=== PATIENT | male | born 1985 | race Caucasian/White ===

== ENCOUNTER 2021-12-30 13:55 | Inpatient (IN) | payer OTHER, MEDICAID, SELFPAY ==
[2021-12-30] VITALS (20 sets, daily range): BP systolic 122–173; BP diastolic 70–109; PULSE 87–111; RESP 16–20; TEMP 36.2–43; O2SAT 91–100; BMI 34.2; BMI 36.4
--- NOTE | 2021-12-30 14:39 | PC.NURSE ---
calling [facility] [place] for records from previous visit.
--- NOTE | 2021-12-30 14:52 | HMH.EDGENADL ---
ED Disposition Clinical Impression: Septic arthritis of knee, left Qualifiers: Septic arthritis organism: staphylococcal Qualified Code(s): M00.062 - Staphylococcal arthritis, left knee Disposition: Still a Patient Condition on Discharge: Fair Referrals: Provider,Referral, [Primary Care Provider] - - Critical Care Critical Care Time: No Attestation: On 12/30/21, the high probability of a clinically significant, sudden or life threatening deterioration of the following system(s) required my full and direct attention, intervention and personal management. The time I documented below is in addition to time spent performing reported procedures but includes the following listed in this critical care notation. Medical Decision Making - Garland Inquiry Pt receiving controlled substance: Yes [place] was queried for this patient: No Risks and benefits of using a controlled substance: were not discussed with pt by me Vital Signs: 12/30/21 13:56 12/30/21 14:30 12/30/21 15:00 Temperature 98.4 F Temperature Source Oral Pulse Rate 101 H 98 H Pulse Rate [Left Radial] 108 H Respiratory Rate 18 Blood Pressure 145/95 H 125/78 Blood Pressure [Right Arm] 141/98 H Blood Pressure Mean Blood Pressure Mean [Right Arm] 112 Blood Pressure Source [Right Arm] Automatic Cuff Blood Pressure Position [Right Arm] Sitting 02 Sat by Pulse Oximetry 99 94 L 94 L Oxygen Delivery Method Room Air 12/30/21 15:30 12/30/21 16:00 12/30/21 16:30 Temperature Temperature Source Pulse Rate 103 H 87 100 H Pulse Rate [Left Radial] Respiratory Rate Blood Pressure 136/94 H 122/70 132/94 H Blood Pressure [Right Arm] Blood Pressure Mean Blood Pressure Mean [Right Arm] Blood Pressure Source [Right Arm] Blood Pressure Position [Right Arm] 02 Sat by Pulse Oximetry 91 L 97 100 Oxygen Delivery Method 12/30/21 17:00 12/30/21 17:31 12/30/21 20:01 Temperature 98.4 F Temperature Source Pulse Rate 90 111 H 111 H Pulse Rate [Left Radial] Respiratory Rate 20 18 18 Blood Pressure 129/81 141/75 H 141/75 H Blood Pressure [Right Arm] Blood Pressure Mean 97 97 Blood Pressure Mean [Right Arm] Blood Pressure Source [Right Arm] Blood Pressure Position [Right Arm] 02 Sat by Pulse Oximetry 95 98 Oxygen Delivery Method - Lab Data Lab Results 12/30/21 15:05: WBC 10.2, RBC 4.52 L, Hgb 13.6 L, Hct 42.6, MCV 94.1 H, MCH 30.1, MCHC 32.0, RDW 13.6, Plt Count 251, MPV 8.6, Neut % (Auto) 68.0, Lymph % (Auto) 20.1, [place] % (Auto) 7.3, Eos % (Auto) 3.0, Baso % (Auto) 1.6, Neut # (Auto) 6.9, Lymph # (Auto) 2.0, [place] # (Auto) 0.7, Eos # (Auto) 0.3, Baso # (Auto) 0.2, ESR 73 H 12/30/21 15:05: Sodium 133 L, Potassium 3.6, Chloride 98, Carbon Dioxide 28, Anion Gap 10.6, BUN 15, Creatinine 0.90, Estimated Creat Clear 191, Estimated GFR 96, Est GFR ( Amer) 116, Glucose 114 H, Calcium 8.0 L, Total Bilirubin 0.9, AST 30, ALT 36, Alkaline Phosphatase 93, C-Reactive Protein 250.8 H, Total Protein 7.4, Albumin 3.9, Globulin 3.5 H, Albumin/Globulin Ratio 1.1 12/30/21 15:05: Uric Acid 6.3 12/30/21 15:05: Lactate 0.9 12/30/21 18:00: SARS-CoV-2 (PCR) Not detected, Influenza A Untype (PCR) Not detected, Influenza Type B (PCR) Not detected Result diagrams: 12/30/21 15:05 12/30/21 15:05 Orders (Tests/Meds): ED MEDICATIONS Discontinued Medications Generic Name Dose Route Start Last Admin Trade Name Freq PRN Reason Stop Dose Admin Vancomycin HCl 2,000 mg/ 500 mls @ 250 mls/hr 12/30/21 19:15 Sodium Chloride IV 12/30/21 21:14 ONCE ONE Vancomycin/PEG/NADA/Lysine/Water 1.75 gm in 350 mls @ 175 mls/hr 12/31/21 04:00 Vancomycin 1.75gm/350ml (Peg) Premix IV 01/14/22 03:59 Q8H GERI Morphine Sulfate 4 mg 12/30/21 15:43 12/30/21 15:48 Morphine 4mg/Ml Syringe IV 12/30/21 15:44 4 mg ONCE ONE Administration Ondansetron HCl 4 mg 12/30/21 15:43 12/30/21 15:48 Ondan
[2021-12-30 15:14] LABS: Basophils # 0.2 K/mm3 (0-0.2); Basophils % 1.6 % (0.1-2.0); Eosinophils # 0.3 K/mm3 (0.0-0.4); Hematocrit 42.6 % (42.0-52.0); Hemoglobin 13.6 g/dL (14.1-18.0); Lymphocytes % 20.1 % (10-50); Mean Corpuscular Hemoglobin 30.1 pg (27.0-31.2); Mean Corpuscular Volume 94.1 fl (80-94); Mean Platelet Volume 8.6 fl (7.4-10.4); Monocytes # 0.7 K/mm3 (0.1-1.0); Monocytes % 7.3 % (1.7-9.3); Neutrophils # 6.9 K/mm3 (1.8-7.8); Platelet Count 251 K/mm3 (142-424); Red Blood Count 4.52 M/mm3 (4.60-6.20); Red Cell Distribution Width 13.6 % (11.5-17.5); White Blood Count 10.2 K/mm3 (4.8-10.8)
[2021-12-30 15:21] LABS: Chloride 98 mmol/L (98-107)
[2021-12-30 15:22] LABS: Potassium 3.6 mmoL/L (3.5-5.1); Sodium 133 mmol/L (136-145)
[2021-12-30 15:24] LABS: Alanine Aminotransferase 36 U/L (12-78); Alkaline Phosphatase 93 U/L (38-126); Aspartate Amino Transferase 30 U/L (17-59); Bilirubin,Total 0.9 mg/dl (0.2-1.3); Blood Urea Nitrogen 15 mg/dl (9-20); Creatinine Clearance Estimated 191 mL/min (50-200); Estimated Glomerular Filt Rate 96 ml/min (>60); GFR (African American) 116 ML/MIN (>60)
[2021-12-30 15:25] LABS: Albumin Level 3.9 g/dl (3.5-5.0); Albumin/Globulin Ratio 1.1 (1.1-1.8); Anion Gap 10.6 mEq/L (5-15); Carbon Dioxide 28 mmol/L (22.0-30.0); Globulin 3.5 g/dL (1.3-3.2); Glucose 114 mg/dl (74-100); Total Protein,Serum 7.4 g/dl (6.3-8.2)
[2021-12-30 15:30] LABS: C-Reactive Protein 250.8 mg/L (0-4)
[2021-12-30 15:38] LABS: Erythrocyte Sedimentation Rate 73 mm/hr (0-15)
--- NOTE | 2021-12-30 16:21 | PC.NURSE ---
contacting [facility] again for records.
--- NOTE | 2021-12-30 17:04 | PC.NURSE ---
placed call to [facility] Tone Jim spoke with someone in the ER he advised he would print it out right now and fax last ER note to us. He did advise he probably could not get access to preliminary culture values.
--- NOTE | 2021-12-30 17:46 | PC.NURSE ---
dr. Augustin paged
--- NOTE | 2021-12-30 17:49 | PC.NURSE ---
called and spoke directly to the lab dept at [facility], spoke with a tech named raul and she stated that there was a preliminary result of the knee aspirated fluid showed light growth of staph
--- NOTE | 2021-12-30 17:59 | XR_ITS ---
PROCEDURE INFORMATION: Exam: XR Left Knee Exam date and time: 12/30/2021 5:59 PM Age: 36 years old Clinical indication: Swelling or effusion of joint; Prior surgery; Surgery date: 6+ months; Surgery type: Acl repair 2003; Patient HX: Swelling in left knee no trauma; Additional info: Knee pain-infection TECHNIQUE: Imaging protocol: XR Left knee. Views: 3 views. COMPARISON: No relevant prior studies available. FINDINGS: Bones/joints: Status post ACL repair. There is no evidence of acute fracture. There is no evidence of joint malalignment or dislocation. Soft tissues: Mild soft tissue swelling. Other findings: Small suprapatellar joint effusion. IMPRESSION: 1. No evidence of acute fracture. 2. No evidence of acute dislocation. 3. Mild soft tissue swelling. 4. Small suprapatellar joint effusion.
[2021-12-30 18:09] LABS: Uric Acid 6.3 mg/dl (3.5-8.5)
[2021-12-30 18:31] LABS: Lactic Acid 0.9 mmol/L (0.7-2.1)
--- NOTE | 2021-12-30 18:37 | PC.NURSE ---
Dr Augustin in dept at this time.
--- NOTE | 2021-12-30 18:52 | PC.NURSE ---
Pt going to OR per
--- NOTE | 2021-12-30 19:02 | PC.NURSE ---
called [facility] for Vancomycin IV loading dose, s/w Edwin, and he recommends Vanco 2grams. He will place order in DEC. Dr. Augustin said do not give it but call for dosing and prepare.
[2021-12-30 19:04] LABS: Coronavirus 19, PCR Not Detected (NotDetected); Influenza A, PCR Not Detected (NotDetected); Influenza B, PCR Not Detected (NotDetected)
--- NOTE | 2021-12-30 19:15 | PC.WOUNDNOTE ---
Notified by Dr Augustin at 1854 that pt is to go to OR for arthroscopy and washout of left knee r/t septic joint. states that he has already spoken with Anesthesia. Marisela and Mary Grant Called and notified of case at 1856 and 1858.
--- NOTE | 2021-12-30 19:54 | HMH.ORTHHP ---
*Admission Date: 12/30/21 *Reason for consult:: Septic arthritis, left knee *History of present illness: Patient is a 36-year-old male who presented to the ER this afternoon with 3-day history of acute left knee pain and swelling. He says the pain started evening while he was sitting and watching TV. He says the knee began to feel warm and he woke up from sleep around 3 AM in the morning with severe pain. There is no history of any recent knee injury. Patient reports that the following day (12/28/2021) he went to [facility] ER where he had his left knee aspirated. Patient states that the fluid that was aspirated from the knee was 'like pus'. He also reports he was given IV antibiotics and had some blood work; following evaluation there, patient says he was sent home with oral Keflex and naproxen and was told to follow-up with an orthopedic surgeon during the weekday. He says he has taken about 5 tablets of Keflex so far. He says the pain is slightly better today compared to couple of days ago. Patient states that one of his aunts is a nurse practitioner (Janie Alcantar, SCHOOL VOCATIONAL EDUCATOR for Dr. Pedersen) at [facility] and she advised him to come to the ER at [facility] for evaluation for possible septic arthritis. After patient presented to the ER at [facility], he had some blood work which showed normal white cell count with markedly elevated CRP and elevated ESR. Symptomatically patient reports that his knee feels better today than the previous few days. He says the knee feels warm to touch. No history of any fevers, chills or rigors. Patient says he is feeling well within himself. No history of any distal tingling or numbness. He has been mobilizing fully weightbearing on the left lower extremity. He reports that the pain is exacerbated with any attempted knee movements. Patient has history of left knee ACL reconstruction in 2003 following a footballing injury. Subsequently he also had right knee ACL reconstruction in 2010 again after a footballing injury. Patient reports that he did not have any complications following his left knee surgery. He says he did not have similar problem previously. However, patient states that he did have some ongoing knee pain for a long time. He has no significant medical problems and is not on any regular medication. The ER physician (Dr. Gong) contacted [facility] and obtained a preliminary report on the patient's knee joint fluid culture, which is shown to be growing Staph aureus. He states that he was unable to get any other records. [facility] History I have reviewed the patient's past medical history: Yes *Have you ever received a pneumonia vaccine?: Yes *Have you received a flu vaccine this season?: Yes Laterality Cases: Bilateral: ACL Repair - *Social History Smoking Status: Never smoker Alcohol Intake: former *Occupational Status:: employed *Travel in the last 8 weeks: Inside the [employer] Family Hx:: Non-contributory Review of Systems - Review of Systems Review of systems:: pertinent systems reviewed and negative unless documented below - Constitutional Denies anorexia, Denies chills, Denies fever(s) - Eyes Denies change in vision - ENT Denies abnormal hearing, Denies difficulty swallowing - *Cardiovascular Denies chest pain, Denies chest pain with activity, Denies shortness of breath - *Respiratory Denies chest congestion, Denies shortness of breath with activity - *Gastrointestinal Denies abdominal pain, Denies change in bowel habits - *Genitourinary Denies difficulty urinating - *Musculoskeletal Reports abnormal walking, Reports joint pain, Reports joint swelling, Reports limited joint movement - *Neurologic Reports abnormal walking, Denies seizure-like activity, Denies tingling/numbness/burning sensations - Endocrine Denies cold intolerance, Denies heat intolerance - Hematologic/Lymphatic Denies easy bleeding, Denies
--- NOTE | 2021-12-30 20:49 | HMH.ANESCL ---
[facility] Anesthesia Checklist - Patient Identification Patient Identification: Arm Band - Structural Data Admitted From: Home Planned Operative Procedure/s: Arthroscopic Washout and Debridement Left Knee Consent for Planned Operative Procedure(s) Verified: Yes Verified Documents: Surgical Consent, History and Physical - NPO Status Verified Time NPO: 00:00 - Additional verifications Anesthesia Reactions: No - Airway Assessment C-Spine Mobility Assessed: Yes (mp2) TMJ Mobility Assessed: Yes Dentition: Good Dentition - Neurological Assessment Level of Consciousness: Awake, Alert - Anesthesia Plan Anesthesia Risk discussed: Yes Anesthesia Plan: Verified ASA Class: II (e) Anesthesia Type: General [facility] History I have reviewed the patient's past medical history: Yes *Have you ever received a pneumonia vaccine?: Yes *Have you received a flu vaccine this season?: Yes Anesthesia experience/problems:: nac Other Surgeries: Yes: Other - *Social History Smoking Status: Never smoker Alcohol Intake: current Alcohol Intake Frequency:: other Substance Use Type: denies use *Occupational Status:: employed *Travel in the last 8 weeks: None Family Hx:: No significant family history
--- NOTE | 2021-12-30 21:56 | P.PN_ITS ---
[facility] Anesthesia Record Part I Intake, IV Amount: 1,100 Estimated blood loss (mL): 10 Urine output (mL): 0 Blood Pressure: 139/103 SaO2: 93 Pulse Rate: 100 Respiratory Rate: 16 Temperature: 97.2 F Patient is:: Drowsy, Stable Stable to PACU at:: 21:50
--- NOTE | 2021-12-30 22:40 | PC.NURSE ---
pt arrived to floor from surgery at 2229, via stretcher with surgery staff
--- NOTE | 2021-12-30 22:46 | HMH.OPNOTE ---
Date of procedure: 12/31/21 Pre-op Diagnosis:: Septic arthritis, left knee Post-op Diagnosis:: 1. Septic arthritis, left knee 2. Degenerative arthritis, left knee Procedure performed:: Arthroscopic washout/debridement, left knee Surgeon:: Jayro Augustin MD Amusement Machine Mechanic(s):: Mary Lopez CSA AV SPECIALIST:: Royce Davis Anesthesia: LMA Estimated blood loss (mL): 5 Clinical Note:: Patient is a 36-year-old male who presented to the ER this afternoon with 3-day history of acute left knee pain and swelling. He says the pain started evening while he was sitting and watching TV. He says the knee began to feel warm and he woke up from sleep around 3 AM in the morning with severe pain. There is no history of any recent knee injury. Patient reports that the following day (12/28/2021) he went to [facility] ER where he had his left knee aspirated. Patient states that the fluid that was aspirated from the knee was 'like pus'. He also reports he was given IV antibiotics and had some blood work; following evaluation there, patient says he was sent home with oral Keflex and naproxen and was told to follow-up with an orthopedic surgeon during the weekday. He says he has taken about 5 tablets of Keflex so far. He says the pain is slightly better today compared to couple of days ago. Patient states that one of his aunts is a nurse practitioner (Janie Alcantar, MAGAZINE DESIGNER for Dr. Pedersen) at [facility] and she advised him to come to the ER at [facility] for evaluation for possible septic arthritis. After patient presented to the ER at [facility], he had some blood work which showed normal white cell count with markedly elevated CRP and elevated ESR. Symptomatically patient reports that his knee feels better today than the previous few days. He says the knee feels warm to touch. No history of any fevers, chills or rigors. Patient says he is feeling well within himself. No history of any distal tingling or numbness. He has been mobilizing fully weightbearing on the left lower extremity. He reports that the pain is exacerbated with any attempted knee movements. Patient has history of left knee ACL reconstruction in 2003 following a footballing injury. Subsequently he also had right knee ACL reconstruction in 2011 again after a footballing injury. Patient reports that he did not have any complications following his left knee surgery. He says he did not have similar problem previously. However, patient states that he did have some ongoing knee pain for a long time. He has no significant medical problems and is not on any regular medication. The ER physician (Dr. Gong) contacted [facility] and obtained a preliminary report on the patient's knee joint fluid culture, which is shown to be growing Staph aureus. He states that he was unable to get any other records. On examination of the left knee, there are well-healed surgical scars from previous ACL surgery. There are multiple needle puncture cobb over the lateral aspect of the knee possibly from recent knee aspiration at an outside facility. There is diffuse swelling and mild erythema over the knee. There is increased local warmth compared to the opposite side. There is a 1+ knee effusion; patient has tenderness over all 3 compartments. Knee range of movements is limited from 10 to 50 degrees of flexion only. The movements are painful. Knee joint is ligamentously stable. Thigh and calf are soft and nontender. Distal neurovascular status is intact. Dorsalis pedis and posterior tibial pulses are 2+ bilaterally. Sensation is intact to light touch throughout. On examination of the right knee, there are well-healed surgical scars from previous surgery. There is no tenderness. Knee range of movements is 0-1 30? of flexion. Knee joint is ligamentously stable. Distal neurovascular status is intact. Examination of both hip joints demonstrates good range of pain-free mo
[2021-12-31] VITALS (11 sets, daily range): BP systolic 115–154; BP diastolic 61–93; PULSE 73–109; RESP 16–18; TEMP 36.4–36.9; O2SAT 92–99; BMI 36.3
--- NOTE | 2021-12-31 02:14 | PC.NURSE ---
[facility] pharmacy contacted at this time to ask about vanc consult and vanc order already in computer, Jodi from [facility] advised that vanc did not have to be consulted on again and that to give what was scheduled in computer
--- NOTE | 2021-12-31 05:22 | PC.NURSE ---
pt has rested intermittently t/o shift, ice pack has been placed on L knee t/o shift, has complained of pain twice and was treated per DEC, remains on room air, no complaints of SOA
[2021-12-31 06:13] LABS: Basophils % 0.2 % (0.1-2.0); Eosinophils % 0.1 % (0.1-12.0); Hematocrit 38.1 % (42.0-52.0); Hemoglobin 12.3 g/dL (14.1-18.0); Lymphocytes % 9.7 % (10-50); Mean Corpuscular HGB Conc 32.4 g/dL (31.8-35.4); Mean Corpuscular Hemoglobin 31.1 pg (27.0-31.2); Mean Platelet Volume 8.6 fl (7.4-10.4); Monocytes # 0.6 K/mm3 (0.1-1.0); Monocytes % 5.6 % (1.7-9.3); Neutrophils # 8.3 K/mm3 (1.8-7.8); Neutrophils % 84.4 % (37.0-80.0); Platelet Count 246 K/mm3 (142-424); Red Blood Count 3.97 M/mm3 (4.60-6.20); Red Cell Distribution Width 13.4 % (11.5-17.5); White Blood Count 9.9 K/mm3 (4.8-10.8)
[2021-12-31 06:20] LABS: Anion Gap 12.3 mEq/L (5-15); Blood Urea Nitrogen 11 mg/dl (9-20); Calcium 8.2 mg/dl (8.4-10.2); Carbon Dioxide 29 mmol/L (22.0-30.0); Chloride 102 mmol/L (98-107); Creatinine Clearance Estimated 259 mL/min (50-200); Estimated Glomerular Filt Rate 128 ml/min (>60); GFR (African American) 155 ML/MIN (>60); Glucose 139 mg/dl (74-100); Potassium 4.3 mmoL/L (3.5-5.1); Sodium 139 mmol/L (136-145)
--- NOTE | 2021-12-31 07:42 | HMH.PHAVTE ---
[facility] Pharmacy VTE Monitoring - Patient Demographics Admission date: 12/31/21 Report Date: 12/31/21 Time: 07:42 Allergies/Adverse Reactions: Patient Allergies No Known Allergies Allergy (Verified 12/31/21 00:36) Height: 1.85 m Weight: 124.461 kg Patient Problems: Current Active Problems Septic arthritis of knee, left (Acute) - VTE Risk Labs: VTE Related Lab Results Hgb 12.3 g/dL (14.1-18.0) L 12/31/21 05:14 Hct 38.1 % (42.0-52.0) L 12/31/21 05:14 Plt Count 246 K/mm3 (142-424) 12/31/21 05:14 BUN 11 mg/dl (9-20) D 12/31/21 05:14 Creatinine 0.70 mg/dl (0.66-1.25) D 12/31/21 05:14 Estimated Creat Clear 259 mL/min (50-200) 12/31/21 05:14 Was VTE Risk Assessment Performed: Yes VTE Score: 5 VTE Risk Level: Low Risk Clinical Trial Participant: No - Prophylaxis VTE Prophylaxis Ordered?: Yes Types of VTE Prophylaxis: IPCS Knee High Location of Applied Device: Right Leg
--- NOTE | 2021-12-31 07:59 | HMH.ANESII ---
[facility] Anesthesia Record Part II Discharge Time: 22:20 Destination: Medical Surgical Department PACU nurse assessment reviewed?: Yes Patient Condition:: Good Anesthesia Complications:: None Swallowing reflex intact?: Yes Cyanosis?: No Blood Pressure: 141/93 Pulse Rate: 109 Temperature: 97.5 F Mental Status: Alert & Oriented Pain level:: 0 Nausea and/or vomitting:: None Intake, IV Amount: 0
--- NOTE | 2021-12-31 09:28 | HMH.PHACONS ---
- Pharmacy Consult Date: 12/31/21 Time: 09:28 Referring provider: DR. BAL Reason for Consult:: VANCOMYCIN DOSING Allergies and ADEs:: Allergies Allergy/AdvReac Type Severity Reaction Status Date / Time No Known Allergies Allergy Verified 12/31/21 00:36 Home Medications:: Home Medications Medication Instructions Recorded Confirmed Type No Known Home Medications 12/31/21 12/31/21 History Height: 1.85 m Weight: 124.461 kg Laboratory Results:: Laboratory Results - last 24 hr 12/30/21 15:05: WBC 10.2, RBC 4.52 L, Hgb 13.6 L, Hct 42.6, MCV 94.1 H, MCH 30.1, MCHC 32.0, RDW 13.6, Plt Count 251, MPV 8.6, Neut % (Auto) 68.0, Lymph % (Auto) 20.1, [place] % (Auto) 7.3, Eos % (Auto) 3.0, Baso % (Auto) 1.6, Neut # (Auto) 6.9, Lymph # (Auto) 2.0, [place] # (Auto) 0.7, Eos # (Auto) 0.3, Baso # (Auto) 0.2, ESR 73 H 12/30/21 15:05: Sodium 133 L, Potassium 3.6, Chloride 98, Carbon Dioxide 28, Anion Gap 10.6, BUN 15, Creatinine 0.90, Estimated Creat Clear 191, Estimated GFR 96, Est GFR ( Amer) 116, Glucose 114 H, Calcium 8.0 L, Total Bilirubin 0.9, AST 30, ALT 36, Alkaline Phosphatase 93, C-Reactive Protein 250.8 H, Total Protein 7.4, Albumin 3.9, Globulin 3.5 H, Albumin/Globulin Ratio 1.1 12/30/21 15:05: Uric Acid 6.3 12/30/21 15:05: Lactate 0.9 12/30/21 18:00: SARS-CoV-2 (PCR) Not detected, Influenza A Untype (PCR) Not detected, Influenza Type B (PCR) Not detected 12/31/21 05:14: WBC 9.9, RBC 3.97 L, Hgb 12.3 L, Hct 38.1 L, MCV 96.0 H, MCH 31.1, MCHC 32.4, RDW 13.4, Plt Count 246, MPV 8.6, Neut % (Auto) 84.4 H, Lymph % (Auto) 9.7 L, [place] % (Auto) 5.6, Eos % (Auto) 0.1, Baso % (Auto) 0.2, Neut # (Auto) 8.3 H, Lymph # (Auto) 1.0, [place] # (Auto) 0.6, Eos # (Auto) 0.0, Baso # (Auto) 0.0 12/31/21 05:14: Sodium 139, Potassium 4.3, Chloride 102, Carbon Dioxide 29, Anion Gap 12.3, BUN 11 D, Creatinine 0.70 D, Estimated Creat Clear 259, Estimated GFR 128, Est GFR ( Amer) 155 D, Glucose 139 H D, Calcium 8.2 L Medical History: Denies:: Cancer, Diabetes Mellitus Type 1, Diabetes Mellitus Type 2, MRSA Assessment and Plan (1) Septic arthritis of knee, left Status: Acute Qualifiers: Septic arthritis organism: staphylococcal Qualified Code(s): M00.062 - Staphylococcal arthritis, left knee Category: Medical Code(s): M00.9 - Pyogenic arthritis, unspecified - Assessment and plan all Dx Assessment and Plan for all problems:: PAge: 36 yo Serum creatinine: 0.7 mg/dL Height: 72.8 Inches Weight (kg): 124.5 Assessment: IBW (kg): 79.44 Dosing wt(kg): 124.5 Estimated Creatinine clearance (ml/min): 130 Clearance limited to 130 ml/min to reduce risk of overdosing. CRCL method: Cockcroft and Gault using ibw(default). Drug selected: Vancomycin Loading dose (mg): 0 Vd (liters): 99.6 (factor used: 0.8 L/kg) Paul (hr-1): 0.112 Half life (hrs): 6.19 Recommended dose: 2000 mg Interval: 8 hrs Infusion time (hrs): 2.0 Predicted peak (mcg/mL): 30.4 Predicted trough (mcg/mL): 15.52 Total body weight is being used for vancomycin dosing. Recommendations: PATIENT RECEIVED 1X DOSE OF VANCOMYCIN 2 GM PREOP AT 2034 ON 12/30/21. VANCOMYCIN 1750 MG WAS GIVEN AT 321 ON 12/31/21. RECOMMEND GIVING Vancomycin 2000 mg q 8 hrs with an expected Cpeak of 30.4 mcg/ml and an expected Ctrough of 15.52 mcg/ml. ----Vanco only - ignore for aminoglycosides----- CLvanco= 11.16 L/hr AUC 0-24 /MAXIMO Data: MAXIMO 0.5 mcg/mL: AUC/MAXIMO: 1075.3 MAXIMO 1.0 mcg/mL: AUC/MAXIMO: 537.6 --------- MAXIMO 1.5 mcg/mL: AUC/MAXIMO: 358.4 MAXIMO 2.0 mcg/mL: AUC/MAXIMO: 268.8 Thank you for the consult, will continue to follow.
--- NOTE | 2021-12-31 10:31 | HMH.PTEV ---
Physical Therapy Evaluation Rehab PT IP Evaluation Start: 12/30/21 22:23 Freq: ONCE Status: Active Protocol: Document 12/31/21 10:28 MADISONFEDERICO (Rec: 12/31/21 10:31 LAUREN [id number]) Subjective/History History History Pt is a 36 y/o male admitted to [facility] s/p L knee arthroscopic debridement and sepsis clean out Subjective Subjective Pt rpeorts he just had morphine so is tired - but also reports he has had a lot of knee surgeries so he is used to this Rehab PT IP Eval Objective Appearance Patient Behavior Appropriate,Cooperative Patient Orientation Person,Place,Time,Situation Difficulty following instructions none Speech Pattern Clear,Appropriate Ambulation Patient Able to Ambulate Yes Ambulation Observation IP General Gait Pattern Observation Antalgic Gait,Decrease Weight Bear (L) Ambulation Distance (feet) 25 Ambulation Assistive Device Straight Cane Ambulation Ability Independent Balance Ability to Arise Able, uses arms to help Sitting Balance Steady, safe Standing Balance Steady, wide stance Dynamic Sitting Balance Ability Normal Dynamic Standing Balance Ability Fair Transfers Bed Transfer Ability Independent Chair Transfer Ability Independent Sit to Stand Bed Transfer Ability Independent Sit to Stand Chair Transfer Ability Independent Rehab PT IP prob,goals,plan Problems Date of Evaluation: 12/31/21 Rehab Potential Rehab Potential Innapropriate for Skilled Therapy Equipment Needs Assistive Devices Straight Cane Discharge Plan PT Discharge Plan Pt safe to return home once medically stable - pt modified independent w/ use of SPC as AD. G -code Required No Eval Complexity Eval Charge Codes 69201 - Moderate Complexity PHYSICIAN CERTIFICATION: I certify the specified therapy services for Jayesh Bee are required, authorized, and reviewed every 30 days.
--- NOTE | 2021-12-31 11:33 | HMH.OTEV ---
OT Inpatient Evaluation Rehab OT IP Evaluation Start: 12/30/21 22:23 Freq: ONCE Status: Complete Protocol: Document 12/31/21 11:24 MATEUS (Rec: 12/31/21 11:33 [id number] Re[facility] OT IP Assessment Subjective History Pt oriented x 4 on arrival. Pt agreeable to engage in therapy evaluation. Pt was admitted via ED on 12/30/21 due to septic arthritis L knee. The following information was copied from pts history and physical report: Patient is a 36-year-old male who presented to the ER this afternoon with 3-day history of acute left knee pain and swelling. He says the pain started evening while he was sitting and watching TV. He says the knee began to feel warm and he woke up from sleep around 3 AM in the morning with severe pain. There is no history of any recent knee injury. Patient reports that the following day (12/28/2021) he went to [facility] ER where he had his left knee aspirated. Patient states that the fluid that was aspirated from the knee was 'like pus'. He also reports he was given IV antibiotics and had some blood work; following evaluation there, patient says he was sent home with oral Keflex and naproxen and was told to follow-up with an orthopedic surgeon during the weekday. He says he has taken about 5 tablets of Keflex so far. He says the pain is slightly better today compared to couple of days ago. Patient states that one of his aunts is a nurse practitioner (Janie Alcantar, NURSING SURGICAL SERVICES DIRECTOR for Dr. Pedersen) at [facility] and she advised him
--- NOTE | 2021-12-31 14:11 | SW/DCPLANNER ---
Addendum entered by [facility] 01/02/22 15:24: Patient has refused PICC line stating he would rather be stuck every time at [facility] outpatient department. [facility]/ [facility] is fine with this plan if that what patient prefers. Dr Augustin and patients nurse (Chante) informed and agreeable with plan. Patient will discharge today after his first dose of Dapto. Addendum entered by [facility] 01/02/22 15:14: Dr Augustin has stated that this patient will need to discharge home with PICC line and IV Dapto. Patient resides in [facility], is ambulatory and is not homebound: recommendation is to discharge home and return to hospital in [facility] ([facility]) for outpatient IV antibiotics. This patient concurs with this plan will discharge home today after PICC line placement pending no setbacks. Original Note: I spoke with this patient regarding discharge plans. Patient stated that he resides at home with family and plans to return home at time of discharge. Patient voiced the only thing he needs at this time is a cane at time of discharge.
--- NOTE | 2021-12-31 15:20 | HMH.ORTHPN ---
Subjective Date: 12/31/21 Time: 13:15 Principal diagnosis: Septic arthritis, left knee Interval history: Patient is a 36-year-old male who underwent an uneventful arthroscopic washout/debridement of the left knee yesterday 12/30/2021. Today the patient is postop day #1. This afternoon the patient is lying comfortably in bed and his mother is present at the bedside. He states he is having some pain in his left knee as to be expected but states that it is well controlled with pain medication and is improved from the past few days. He states that he has been eating and drinking well and denies any episodes of nausea/vomiting. He denies history of fevers, chills, rigors, distal tingling/numbness, or any other symptoms/concerns at this time. PN: Obj Ex Vital signs: Temp Pulse Resp BP Pulse Ox 97.5 F L 109 H 16 141/93 H 98 12/31/21 08:00 12/31/21 08:00 12/31/21 08:00 12/31/21 08:00 12/31/21 08:00 - Constitutional no acute distress, cooperative - Routine HEENT Exam Head: Present: normocephalic, atraumatic Eye: Present: EOMI, PERRL ENT: Present: mucous membranes moist - Routine Neck Exam Present: supple, full ROM, trachea midline. Absent: JVD, lymphadenopathy - Routine Respiratory Exam Absent: accessory muscle use, respiratory distress Comments: Symmetric chest movement, able to speak in complete sentences - Routine Cardiovascular Exam Present: RRR Comments: Normal peripheral pulses - Routine Abdominal Exam Present: soft. Absent: tenderness - Routine Extremities Exam Present: normal capillary refill. Absent: calf tenderness Comments: Upon examination of the left knee: Dressings present over the knee are clean, dry, and intact. No evidence of drainage or bleeding noted. Attempted movements of the left knee are painful as to be expected at this stage. Knee joint is ligamentously stable. Thigh and calf are soft nontender; Homans' sign is negative. No clinical evidence of DVT noted. Posterior tibial and dorsalis pedis pulses 2+; capillary refill is brisk. Sensation to light touch is grossly intact throughout. Patient is actively mobilizing the foot, ankle, and toes. - Routine Skin Exam Present: intact, warm, normal turgor. Absent: jaundice - Routine Neurological Exam Present: alert, oriented X3, CN II-XII intact, moving all extremities, normal tone, normal speech. Absent: sensory deficit, motor deficit, altered mental status - Routine Psychiatric Exam Present: normal affect, cooperative Progress Note: A&P (1) Septic arthritis of knee, left Status: Acute Assessment and Plan for All Diagnoses:: Rounded with Dr. Augustin; discussed the clinical findings and procedure with the patient and his mother. Overall today he is doing well from an orthopedic standpoint. Continue empiric IV antibiotics; changes to the antibiotic regimen to be made pending culture results and clinical response. He may mobilize weightbearing as tolerated on his left side. Continue rest, ice, elevation, activity modification, and pain medication as needed. All questions were answered and the patient and his mother verbalized a good understanding. Continue home medications as ordered.
[2021-12-31 19:08] LABS: Vancomycin,Trough 11.8 ug/mL (5.0-10.0)
[2021-12-31 23:26] LABS: Chloride 105 mmol/L (98-107); Potassium 3.5 mmoL/L (3.5-5.1); Sodium 136 mmol/L (136-145)
[2021-12-31 23:29] LABS: Anion Gap 9.5 mEq/L (5-15); Blood Urea Nitrogen 15 mg/dl (9-20); Calcium 7.5 mg/dl (8.4-10.2); Carbon Dioxide 25 mmol/L (22.0-30.0); Creatinine Clearance Estimated 227 mL/min (50-200); Estimated Glomerular Filt Rate 110 ml/min (>60); GFR (African American) 133 ML/MIN (>60); Glucose 108 mg/dl (74-100)
[2021-12-31 23:47] LABS: Vancomycin,Peak 19.1 ug/ml (11-39)
[2022-01-01] VITALS: BP 123/68; PULSE 74; RESP 18; TEMP 36.9; O2SAT 98
[2022-01-01 04:00] VITALS: BP 115/69; PULSE 82; RESP 19; TEMP 37.1; O2SAT 96
[2022-01-01 06:13] LABS: Basophils # 0.1 K/mm3 (0-0.2); Basophils % 0.8 % (0.1-2.0); Eosinophils # 0.1 K/mm3 (0.0-0.4); Eosinophils % 1.5 % (0.1-12.0); Hematocrit 38.3 % (42.0-52.0); Hemoglobin 12.1 g/dL (14.1-18.0); Lymphocytes # 2.3 K/mm3 (0.7-4.5); Lymphocytes % 27.4 % (10-50); Mean Corpuscular HGB Conc 31.6 g/dL (31.8-35.4); Mean Corpuscular Hemoglobin 30.6 pg (27.0-31.2); Mean Corpuscular Volume 96.7 fl (80-94); Mean Platelet Volume 8.3 fl (7.4-10.4); Monocytes # 0.5 K/mm3 (0.1-1.0); Monocytes % 5.5 % (1.7-9.3); Neutrophils # 5.4 K/mm3 (1.8-7.8); Neutrophils % 64.9 % (37.0-80.0); Platelet Count 277 K/mm3 (142-424); Red Blood Count 3.96 M/mm3 (4.60-6.20); Red Cell Distribution Width 13.6 % (11.5-17.5); White Blood Count 8.3 K/mm3 (4.8-10.8)
[2022-01-01 06:19] LABS: Anion Gap 10.6 mEq/L (5-15); Blood Urea Nitrogen 13 mg/dl (9-20); Calcium 8.1 mg/dl (8.4-10.2); Carbon Dioxide 26 mmol/L (22.0-30.0); Chloride 108 mmol/L (98-107); Creatinine Clearance Estimated 259 mL/min (50-200); Estimated Glomerular Filt Rate 128 ml/min (>60); GFR (African American) 155 ML/MIN (>60); Glucose 107 mg/dl (74-100); Potassium 3.6 mmoL/L (3.5-5.1); Sodium 141 mmol/L (136-145)
[2022-01-01 06:24] LABS: C-Reactive Protein 100.5 mg/L (0-4)
[2022-01-01 08:00] VITALS: BP 118/66; PULSE 79; RESP 17; TEMP 37.1; O2SAT 95
--- NOTE | 2022-01-01 08:37 | P.CONPHA_ITS ---
- Pharmacy Consult Date: 01/01/22 Time: 08:37 Referring provider: DR BAL Reason for Consult:: VANCOMYCIN DOSING ADJUSTMENT Allergies and ADEs:: Allergies Allergy/AdvReac Type Severity Reaction Status Date / Time No Known Allergies Allergy Verified 12/31/21 00:36 Home Medications:: Home Medications Medication Instructions Recorded Confirmed Type No Known Home Medications 12/31/21 12/31/21 History Height: 1.85 m Weight: 124.461 kg Laboratory Results:: Laboratory Results - last 24 hr 12/31/21 18:27: Vancomycin Trough 11.8 H 12/31/21 23:10: Vancomycin Peak 19.1 12/31/21 23:10: Sodium 136, Potassium 3.5, Chloride 105, Carbon Dioxide 25, Anion Gap 9.5, BUN 15 D, Creatinine 0.80, Estimated Creat Clear 227, Estimated GFR 110, Est GFR ( Amer) 133, Glucose 108 H D, Calcium 7.5 L 01/01/22 05:07: WBC 8.3, RBC 3.96 L, Hgb 12.1 L, Hct 38.3 L, MCV 96.7 H, MCH 30.6, MCHC 31.6 L, RDW 13.6, Plt Count 277, MPV 8.3, Neut % (Auto) 64.9, Lymph % (Auto) 27.4, Gregory % (Auto) 5.5, Eos % (Auto) 1.5, Baso % (Auto) 0.8, Neut # (Auto) 5.4, Lymph # (Auto) 2.3, Gregory # (Auto) 0.5, Eos # (Auto) 0.1, Baso # (Auto) 0.1 01/01/22 05:07: Sodium 141, Potassium 3.6, Chloride 108 H, Carbon Dioxide 26, Anion Gap 10.6, BUN 13, Creatinine 0.70, Estimated Creat Clear 259, Estimated GFR 128, Est GFR ( Amer) 155, Glucose 107 H, Calcium 8.1 L, C-Reactive Protein 100.5 H Medical History: Denies:: Cancer, Diabetes Mellitus Type 1, Diabetes Mellitus Type 2, MRSA Assessment and Plan (1) Septic arthritis of knee, left Status: Acute Qualifiers: Septic arthritis organism: staphylococcal Qualified Code(s): M00.062 - Staphylococcal arthritis, left knee Category: Medical Code(s): M00.9 - Pyogenic arthritis, unspecified - Assessment and plan all Dx Assessment and Plan for all problems:: CHANGE VANCOMYCIN 2000 MG Q8H TO VANCOMYCIN 2250 MG Q8H DUE TO TROUGH LEVEL OF 11.8 MCG/ML (12/31/21 AT 18:30) AND A PEAK LEVEL OF 19.1 MCG/ML (12/31/21 AT 23:10)
[2022-01-01 09:15] LABS: Erythrocyte Sedimentation Rate > 140 mm/hr (0-15)
[2022-01-01 12:01] VITALS: BP 131/80; PULSE 81; RESP 17; TEMP 37.1; O2SAT 97
--- NOTE | 2022-01-01 14:34 | HMH.ORTHPN ---
Subjective Date: 01/01/22 <Karly Schwarz - 01/01/22 14:39> Time: 08:45 <Karly Schwarz - 01/01/22 14:39> Principal diagnosis: Septic arthritis, left knee <Karly Schwarz - 01/01/22 14:39> Interval history: Patient is a 36-year-old male who underwent an uneventful arthroscopic washout/debridement of the left knee on 12/30/2021. Today the patient is postop day #2. This morning the patient is lying comfortably in bed and his mother is present at the bedside. He states he is having minimal pain in his left knee and that it is greatly improved over the past few days. He states that he has been eating and drinking well and denies any episodes of nausea/vomiting. He denies history of fevers, chills, rigors, distal tingling/numbness, or any other symptoms/concerns at this time. <Karly Schwarz - 01/01/22 14:39> PN: Obj Ex Vital signs: Temp Pulse Resp BP Pulse Ox 97.9 F 68 17 145/83 H 100 01/01/22 16:00 01/01/22 16:00 01/01/22 16:00 01/01/22 16:00 01/01/22 16:00 <Jayro Augustin - 01/01/22 16:36> Temp Pulse Resp BP Pulse Ox 98.7 F 81 17 131/80 97 01/01/22 12:01 01/01/22 12:01 01/01/22 12:01 01/01/22 12:01 01/01/22 12:01 <Karly Schwarz - 01/01/22 14:39> - Constitutional no acute distress, cooperative <Karly Schwarz - 01/01/22 14:39> - Routine HEENT Exam Head: Present: normocephalic, atraumatic <Karly Schwarz 01/01/22 14:39> Eye: Present: EOMI, PERRL <Karly Schwarz 01/01/22 14:39> ENT: Present: mucous membranes moist <Karly Schwarz 01/01/22 14:39> - Routine Neck Exam Present: supple, full ROM, trachea midline. Absent: JVD, lymphadenopathy <Karly Schwarz 01/01/22 14:39> - Routine Respiratory Exam Absent: accessory muscle use, respiratory distress <Karly Schwarz 01/01/22 14:39> Comments: Symmetric chest movement, able to speak in complete sentences <Karly Schwarz 01/01/22 14:39> - Routine Cardiovascular Exam Present: RRR <SchwarzKarly orozco 01/01/22 14:39> Comments: Normal peripheral pulses <Karly Schwarz 01/01/22 14:39> - Routine Abdominal Exam Present: soft. Absent: tenderness <Karly Schwarz 01/01/22 14:39> - Routine Extremities Exam Present: pulses intact, normal capillary refill. Absent: cyanosis, calf tenderness <Karly Schwarz 01/01/22 14:39> Comments: Upon examination of the left knee: Dressings present over the knee are clean, dry, and intact. No evidence of drainage or bleeding noted. The surgical portals appear clean and healthy. No induration, erythema, purulent drainage, bleeding, or other signs of infection noted. Attempted movements of the left knee are somewhat painful as to be expected at this stage. Knee joint is ligamentously stable. Thigh and calf are soft nontender; Homans' sign is negative. No clinical evidence of DVT noted. Posterior tibial and dorsalis pedis pulses 2+; capillary refill is brisk. Sensation to light touch is grossly intact throughout. Patient is actively mobilizing the foot, ankle, and toes. <KarishmaKarly 01/01/22 14:41> - Routine Skin Exam Present: intact, warm, normal turgor. Absent: cyanosis, erythema, jaundice <SchwarzKarly 01/01/22 14:41> - Routine Neurological Exam Present: alert, oriented X3, CN II-XII intact, moving all extremities, normal tone, normal speech. Absent: sensory deficit, motor deficit, altered mental status <KarishmaKarly 01/01/22 14:41> - Routine Psychiatric Exam Present: normal affect, cooperative <KarishmaKarly 01/01/22 14:41> Progress Note: A&P (1) Septic arthritis of knee, left Status: Acute <Augustin,Jayro Lorenzo - 01/01/22 16:36> (1) Septic arthritis of knee, left Status: Acute <Karly Schwarz - 01/01/22 14:42> Assessment and Plan for All Diagnoses:: I have personally examined this patient, and have reviewed the clinical findings and progress with the patient. I agree with the treatment plan
--- NOTE | 2022-01-01 15:33 | PC.NURSE ---
Pt is alert and oriented x4. Lungs are clear, he remains on RA. There is some swelling to the left knee. 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 There are [address], they are clean, dry and intact. He has ambulated to the bathroom using a cane and tolerates well. Toradol and [place] administered once today for pt report of pain, relief noted on reassessment. Appetite has been good. Mother is at bedside. No other complaints at this time.
[2022-01-01 16:00] VITALS: BP 145/83; PULSE 68; RESP 17; TEMP 36.6; O2SAT 100
--- NOTE | 2022-01-01 16:37 | PC.NURSE ---
Pt transported to room 211 at this time by HAYLEY Alejandro. Report given to MAUREEN Sharif earlier.
--- NOTE | 2022-01-01 16:39 | PC.NURSE ---
Pt arrived to the floor from ICU at this time
--- NOTE | 2022-01-01 16:51 | PC.NURSE ---
Pt is on floor
[2022-01-01 19:15] VITALS: BP 148/84; PULSE 74; RESP 18; TEMP 36.8; O2SAT 99
[2022-01-02 03:25] VITALS: BP 128/71; PULSE 68; RESP 18; TEMP 37.1; O2SAT 98
[2022-01-02 05:00] VITALS: BMI 36.5
--- NOTE | 2022-01-02 05:57 | PC.NURSE ---
Pt a+o x4. Pt has c/o pain in left knee t/o night. Mcal[place] administered per DEC, pt admits relief. [address] on left knee, CDI. Pt able to ambulate to BR independently using cane. SCDS in place on right leg. Call light within reach.
[2022-01-02 07:25] VITALS: BP 151/88; PULSE 80; RESP 18; TEMP 37.1; O2SAT 98
--- NOTE | 2022-01-02 10:06 | HMH.ACPN ---
Internal Medicine - PN: Subj *Date: 01/02/22 *Time: 10:06 Exam Vital signs and Labs for Last 24 Hours: Temp Pulse Resp BP Pulse Ox 98.8 F 80 18 151/88 H 98 01/02/22 07:25 01/02/22 07:25 01/02/22 07:25 01/02/22 07:25 01/02/22 07:25 I & O for Last 24 hours: Intake & Output 12/30/21 12/31/21 01/01/22 01/02/22 23:59 23:59 23:59 23:59 Intake Total 1100 / 1100 3149 / 3149 3835 / 3835 360 / 360 Output Total 3200 / 3600 400 / 400 Balance 1100 / 1100 -51 / -451 3435 / 3435 360 / 360 Weight 124.647 kg 124.461 kg 125.055 kg Microbiology Reports for the Last 24 Hours: Microbiology 12/30/21 20:50 Knee,Left - Left Surgical Biopsy Culture - Preliminary NO GROWTH AFTER 48 HOURS 12/30/21 15:05 Blood Blood Culture - Preliminary NO GROWTH AFTER 48 HOURS 12/30/21 15:05 Blood Blood Culture - Preliminary NO GROWTH AFTER 48 HOURS Assessment and Plan (1) Septic arthritis of knee, left Status: Acute Qualifiers: Septic arthritis organism: staphylococcal Qualified Code(s): M00.062 - Staphylococcal arthritis, left knee Category: Medical Code(s): M00.9 - Pyogenic arthritis, unspecified The patient's infection will respond to the chosen ABx?: Yes Is the patient receiving the right drug, dose, and route?: Yes Could a more targeted ABx be ordered?: No
[2022-01-02 10:55] VITALS: BP 148/88; PULSE 62; RESP 18; TEMP 37.3; O2SAT 96
[2022-01-02 11:39] LABS: Vancomycin,Trough 15.5 ug/mL (5.0-10.0)
--- NOTE | 2022-01-02 14:23 | HMH.PHACONS ---
- Pharmacy Consult Date: 01/02/22 Time: 14:23 Referring provider: DR. BAL Reason for Consult:: VANCOMYCIN TROUGH LEVEL Allergies and ADEs:: Allergies Allergy/AdvReac Type Severity Reaction Status Date / Time No Known Allergies Allergy Verified 12/31/21 00:36 Home Medications:: Home Medications Medication Instructions Recorded Confirmed Type No Known Home Medications 12/31/21 12/31/21 History Height: 1.85 m Weight: 125.055 kg Laboratory Results:: Laboratory Results - last 24 hr 01/02/22 10:20: Vancomycin Trough 15.5 H Medical History: Denies:: Cancer, Diabetes Mellitus Type 1, Diabetes Mellitus Type 2, MRSA Assessment and Plan (1) Septic arthritis of knee, left Status: Acute Qualifiers: Septic arthritis organism: staphylococcal Qualified Code(s): M00.062 - Staphylococcal arthritis, left knee Category: Medical Code(s): M00.9 - Pyogenic arthritis, unspecified - Assessment and plan all Dx Assessment and Plan for all problems:: BASED ON PATIENT'S VANCOMYCIN TROUGH LEVEL OF 15.5 MCG/ML, RECOMMEND CONTINUING WITH VANCOMYCIN 2250 MG Q8H AT THIS TIME.
--- NOTE | 2022-01-02 14:55 | PC.NURSE ---
patient sitting up in bed, no needs or concerns voiced. no questions noted. waiting on md to round. family at bedside resting . encouraged to ring out with any needs or questions
--- NOTE | 2022-01-02 15:10 | PC.NURSE ---
RN in room now placing picc
[2022-01-02 15:15] VITALS: BP 142/92; PULSE 77; RESP 18; TEMP 36.7; O2SAT 100
--- NOTE | 2022-01-02 15:18 | HMH.DCSUM ---
General - General Admission date:: 12/30/21 Discharge date: 01/02/22 HPI HPI: Patient is a 36-year-old male who presented to the [facility] ER on 12/30/2021 with 3-day history of acute left knee pain and swelling. He says the pain started evening while he was sitting and watching TV. He says the knee began to feel warm and he woke up from sleep around 3 AM in the morning with severe pain. There is no history of any recent knee injury. Patient reports that the following day (12/28/2021) he went to the [facility] ER where he had his left knee aspirated. Patient states that the fluid that was aspirated from the knee was 'like pus'. He also reports he was given IV antibiotics and had some blood work; following evaluation there, patient says he was sent home with oral Keflex and naproxen and was told to follow-up with an orthopedic surgeon during the weekday. He says he has taken about 5 tablets of Keflex so far. He says the pain is slightly better today compared to couple of days ago. Patient states that one of his aunts is a nurse practitioner (Janie Alcantar, DISPLAY MANAGER for Dr. Pedersen) at [facility] and she advised him to come to the ER at [facility] for evaluation for possible septic arthritis. After patient presented to the ER at [facility], he had some blood work which showed normal white cell count with markedly elevated CRP and elevated ESR. Symptomatically patient reports that his knee feels better today than the previous few days. He says the knee feels warm to touch. No history of any fevers, chills or rigors. Patient says he is feeling well within himself. No history of any distal tingling or numbness. He has been mobilizing fully weightbearing on the left lower extremity. He reports that the pain is exacerbated with any attempted knee movements. Patient has history of left knee ACL reconstruction in 2003 following a football injury. Subsequently he also had right knee ACL reconstruction in 2010 again after a football injury. Patient reports that he did not have any complications following his left knee surgery. He says he did not have similar problem previously. However, patient states that he did have some ongoing knee pain for a long time. He has no significant medical problems and is not on any regular medication. Our office contacted [facility] and obtained a final report on the patient's knee joint fluid culture, which resulted in growth with staph aureus. Hospital Course Hospital Course: Following evaluation in the ER, the patient was admitted to the acute inpatient service and underwent left knee arthroscopy with washout and debridement. Left knee aspirate and synovial tissue were collected at the time of surgery for microbiology and pathology. Empiric IV antibiotics were ordered; patient was started on an empiric regimen of Vancomycin and Cefazolin. Patient was advised to ambulate weightbearing as tolerated on the left side and has managed this well. His pain is well controlled with oral pain medication and the arthroscopic portals appear clean, dry, and healthy without any active discharge or signs of infection. His surgical dressings were changed on the second postoperative day. Distal neurovascular status is intact and no clinical evidence of DVT noted. Left knee synovial tissue culture and blood cultures were negative for growth at 48 hours. Left knee synovial tissue biopsy demonstrated benign evidence of acute and chronic inflammation. Our office was able to contact [facility] ER and obtain a final report on the patient's knee joint fluid culture, which resulted in growth with staph aureus. Pharmacy was consulted regarding outpatient antibiotic regimen and recommended the patient have a PICC line placed for continued IV antibiotics for an additional 12 days (14 days of parenteral antibiotics in total), followed by an additional 14-21 days of oral antibiotics;
--- NOTE | 2022-01-02 15:21 | PC.NURSE ---
Dr. Augustin is aware that pt is refusing PICC line now and is requesting to have IV placed each time infusion is needed.
--- NOTE | 2022-01-02 15:29 | PC.NURSE ---
Spoke with sofia loja in care management. Ask me to relay to pt that [facility] will call him tomorrow to clarify when to come in for infusing tomorrow. I told pt and he stated that he understood and would await the call tomorrow.
--- NOTE | 2022-01-02 15:58 | PC.NURSE ---
Pt has D/C order in, and is unable to leave until both antibiotics run. They are in the process of going.
--- NOTE | 2022-01-02 16:27 | PC.NURSE ---
Just started Pt's last dose of medication needed before discharge
--- NOTE | 2022-01-02 16:53 | PC.NURSE ---
Called Dr. Alexandra about NORCO he is sending it in to clinic pharmacy. I called and spoke with Vincenzo HUDSON at [facility] to cancel NORCO RX. Since he is calling it in clinic.
--- NOTE | 2022-01-03 13:47 | CARE MANAGER ---
Called [facility] and spoke with the infusion department and Mr. Bee is scheduled for today at 2:30 for his infusion. Nurse states she will call and let me know if patient does not show up for his infusion.
== END 2022-01-02 17:15 | disposition home or self-care (01) | DRG 487 ==
LOC: ER 20:00 → SDC 20:47 → ICU 20:51 → 2ND 01-01 15:17
PROVIDERS: Admitting Provider Orthopaedic Surgery; Emergency Provider Emergency Medicine; Visit Provider Orthopaedic Surgery
PROC: (CPT 29870; principal; 2021-12-30 19:30)
DX: M00.062 Staphylococcal arthritis, left knee (principal); M17.12 Unilateral primary osteoarthritis, left knee
CPT/HCPCS: 29875; 36415; 73562; 80048; 80053; 80202; 83605; 84550; 85025; 85651; 86140; 87040; 87070; 87075; 87205; 96374; 96375; 97162; 97166; 99285; C9803; J0878; J2405; J3370; U0003; U0005

== ENCOUNTER → 2022-01-09 08:57 | Outpatient (CLI) | payer MEDICAID, SELFPAY ==
[2022-01-09 09:17] LABS: Basophils # 0.2 K/mm3 (0-0.2); Basophils % 1.6 % (0.1-2.0); Eosinophils # 0.3 K/mm3 (0.0-0.4); Hematocrit 45.1 % (42.0-52.0); Hemoglobin 14.2 g/dL (14.1-18.0); Lymphocytes # 2.3 K/mm3 (0.7-4.5); Lymphocytes % 23.1 % (10-50); Mean Corpuscular HGB Conc 31.5 g/dL (31.8-35.4); Mean Corpuscular Hemoglobin 29.9 pg (27.0-31.2); Mean Corpuscular Volume 94.9 fl (80-94); Mean Platelet Volume 7.9 fl (7.4-10.4); Monocytes # 0.4 K/mm3 (0.1-1.0); Monocytes % 4.3 % (1.7-9.3); Neutrophils # 6.8 K/mm3 (1.8-7.8); Neutrophils % 67.9 % (37.0-80.0); Platelet Count 563 K/mm3 (142-424); Red Blood Count 4.75 M/mm3 (4.60-6.20); Red Cell Distribution Width 13.1 % (11.5-17.5)
[2022-01-09 09:44] LABS: Erythrocyte Sedimentation Rate 34 mm/hr (0-15)
[2022-01-09 10:13] LABS: C-Reactive Protein 39.8 mg/L (0-4)
== END ==
PROVIDERS: Visit Provider Physician Assistant Surgical
DX: M00.9 Pyogenic arthritis, unspecified (principal)
CPT/HCPCS: 36415; 85025; 85651; 86140